=== PATIENT | female | born 1965 | race Caucasian/White ===

== ENCOUNTER → 2019-04-17 17:21 | Outpatient (BNVA) | payer MEDICAID, SELFPAY | PROVIDERS: PCP Family Medicine; Referring Provider Registered Nurse; Visit Provider Registered Nurse | DX: Z13.228 Encounter for screening for other metabolic disorders (principal) | CPT/HCPCS: 83036 ==

== ENCOUNTER → 2019-09-11 12:08 | Outpatient (BNVA) | payer MEDICAID, SELFPAY ==
[2019-04-19 15:36] VITALS: BP 123/73; BMI 37.8
== END ==
PROVIDERS: Visit Provider Family Medicine
DX: M54.32 Sciatica, left side (principal); J30.9 Allergic rhinitis, unspecified; M19.90 Unspecified osteoarthritis, unspecified site; K21.9 Gastro-esophageal reflux disease without esophagitis; E78.2 Mixed hyperlipidemia; R53.83 Other fatigue; J44.1 Chronic obstructive pulmonary disease with (acute) exacerbation
CPT/HCPCS: 82607; 82652; 84443; 85025

== ENCOUNTER → 2020-03-28 13:49 | Outpatient (BNVA) | payer MEDICAID, SELFPAY ==
[2019-04-19 15:36] VITALS: BP 123/73; BMI 37.8
== END ==
PROVIDERS: PCP Family Medicine; Referring Provider Family Medicine; Visit Provider Anesthesiology Pain Medicine
DX: M47.816 Spondylosis without myelopathy or radiculopathy, lumbar region (principal); M54.16 Radiculopathy, lumbar region; M54.32 Sciatica, left side; F17.210 Nicotine dependence, cigarettes, uncomplicated; Z98.890 Other specified postprocedural states; Z87.19 Personal history of other diseases of the digestive system; Z90.49 Acquired absence of other specified parts of digestive tract
CPT/HCPCS: 99205

== ENCOUNTER 2020-04-10 13:23 | Outpatient (CLI) | payer MEDICAID, SELFPAY ==
[2019-04-19 15:36] VITALS: BP 123/73; BMI 37.8
--- NOTE | 2020-04-10 13:45 | MR_ITS ---
WS: [id number] MRI LUMBAR SPINE NONCONTRAST HISTORY: M54.16 - Radiculopathy, lumbar region, LEFT leg numbness. COMPARISON: None available. TECHNIQUE: Sagittal and axial multisequence imaging is submitted. Mild spondylitic changes in the cervical spine at C5-6 with mild encroachment upon the ventral thecal sac. There is an additional encroachment into the posterior RIGHT lateral thecal sac at T5-6 due to osteophyte disease and probable calcification. No definite cord contact. Normal lumbar alignment with no compression fractures or marrow edema. Disc spaces and vertebral body heights are well-preserved. Conus terminates normally at L1. L1-L2: Normal. L2-L3: Minimal facet joint arthritis. No stenosis. L3-L4: Minimal facet joint arthritis with no stenosis. L4-L5: Moderate ligamentum flavum hypertrophy and facet arthritis. Very mild encroachment upon the th ecal sac but no significant stenosis. No disc protrusion. L5-S1: No significant stenosis or disc protrusions. Mild facet arthritis. Retroperitoneum is negative. Liver is mildly enlarged at 18 cm in length. MR/MR lumbar spine wo con* [id number] IMPRESSION: 1. No significant central or foraminal disc protrusion or stenosis. 2. Very minimal encroachment upon the thecal sac at the L4-5 level. 3. No disc protrusion.
== END 2020-04-10 13:24 | disposition home or self-care (01) ==
LOC: RADSHAW 13:25
PROVIDERS: PCP Family Medicine; Visit Provider Anesthesiology Pain Medicine
DX: M54.16 Radiculopathy, lumbar region (principal)
CPT/HCPCS: 72148

== ENCOUNTER → 2020-06-27 12:42 | Outpatient (BNVA) | payer MEDICAID, SELFPAY ==
[2019-04-19 15:36] VITALS: BP 123/73; BMI 37.8
== END ==
PROVIDERS: PCP Family Medicine; Visit Provider Anesthesiology Pain Medicine
DX: M25.551 Pain in right hip (principal); M25.552 Pain in left hip; M54.32 Sciatica, left side; F17.210 Nicotine dependence, cigarettes, uncomplicated; Z98.890 Other specified postprocedural states; Z87.19 Personal history of other diseases of the digestive system; Z90.49 Acquired absence of other specified parts of digestive tract; M54.10 Radiculopathy, site unspecified
CPT/HCPCS: 99215

== ENCOUNTER → 2020-07-22 13:31 | Outpatient (BNVA) | payer MEDICAID, SELFPAY ==
[2019-04-19 15:36] VITALS: BP 123/73; BMI 37.8
== END ==
PROVIDERS: PCP Family Medicine; Visit Provider Anesthesiology Pain Medicine
DX: M47.816 Spondylosis without myelopathy or radiculopathy, lumbar region (principal); M54.32 Sciatica, left side; F17.210 Nicotine dependence, cigarettes, uncomplicated
CPT/HCPCS: 64493; 64494; 64495; J3490

== ENCOUNTER → 2020-09-09 14:52 | Outpatient (BNVA) | payer MEDICAID, SELFPAY ==
[2019-04-19 15:36] VITALS: BP 123/73; BMI 37.8
== END ==
PROVIDERS: PCP Family Medicine; Visit Provider Family Medicine
DX: M54.32 Sciatica, left side (principal); M77.8 Other enthesopathies, not elsewhere classified; J41.0 Simple chronic bronchitis; Z13.1 Encounter for screening for diabetes mellitus; E78.2 Mixed hyperlipidemia; M25.512 Pain in left shoulder
CPT/HCPCS: 73030; 80053; 80061; 85025

== ENCOUNTER → 2020-10-21 15:09 | Outpatient (BNVA) | payer MEDICAID, SELFPAY ==
[2019-04-19 15:36] VITALS: BP 123/73; BMI 37.8
== END ==
PROVIDERS: PCP Family Medicine; Referring Provider Family Medicine; Visit Provider Specialist
DX: M77.8 Other enthesopathies, not elsewhere classified (principal)
CPT/HCPCS: 73030

== ENCOUNTER 2020-11-12 07:04 | Outpatient (CLI) | payer MEDICAID, SELFPAY ==
[2019-04-19 15:36] VITALS: BP 123/73; BMI 37.8
--- NOTE | 2020-11-12 07:15 | MR_ITS ---
WS: [id number] MRI LEFT SHOULDER NONCONTRAST TECHNIQUE: Sagittal T2, coronal T1, T2 and proton density imaging. Axial gradient PDE imaging. CLINICAL INFORMATION: M75.02 - Adhesive capsulitis of left shoulder COMPARISON: None. FINDINGS: Mild degenerative arthritis AC joint with mild edema. Mild downsloping acromion. Slight subacromial s purring. Mild chronic thinning of the distal supraspinatus with tendinopathy. Small amount of subacro mial/subdeltoid fluid. Normal infraspinatus. Normal subscapularis. Normal teres minor. Normal biceps tendon in the bicipital groove. Normal intra-articular biceps tendon. Glenoid labrum ap pears grossly normal. Mild thickening along the axillary recess can be seen with adhesive capsulitis in appropriate clinical setting. Small amount of signal abnormality in the rotator interval. MR/MR shoulder LT wo con* [id number] IMPRESSION: 1. Mild degenerative arthritis AC joint with mild downsloping acromion and sub acromial spurring. 2. Tendinopathy in the distal supraspinatus. Rotator cuff is otherwise normal in appearance. 3. Normal biceps tendon in the bicipital groove. 4. Visually small volume glenohumeral joint with thickening along the axillary recess. Small amount of signal abnormality in the rotator interval. Findings c an be seen with adhesive capsulitis in appropriate clinical setting.
== END 2020-11-12 07:05 | disposition home or self-care (01) ==
LOC: RADSHAW 07:06
PROVIDERS: PCP Family Medicine; Visit Provider Specialist
DX: M75.02 Adhesive capsulitis of left shoulder (principal); M19.012 Primary osteoarthritis, left shoulder
CPT/HCPCS: 73221

== ENCOUNTER → 2021-03-10 14:35 | Outpatient (BNVA) | payer MEDICAID, SELFPAY ==
[2019-04-19 15:36] VITALS: BP 123/73; BMI 37.8
== END ==
PROVIDERS: PCP Family Medicine; Visit Provider Family Medicine
DX: Z13.1 Encounter for screening for diabetes mellitus (principal); R73.9 Hyperglycemia, unspecified; R74.8 Abnormal levels of other serum enzymes
CPT/HCPCS: 80048; 83036

== ENCOUNTER → 2021-06-18 15:37 | Outpatient (BNVA) | payer MEDICAID, SELFPAY ==
[2019-04-19 15:36] VITALS: BP 123/73; BMI 37.8
== END ==
PROVIDERS: PCP Family Medicine; Visit Provider Family Medicine
DX: E78.2 Mixed hyperlipidemia (principal); R73.03 Prediabetes; N18.9 Chronic kidney disease, unspecified
CPT/HCPCS: 80048; 80061; 83036

== ENCOUNTER → 2021-12-17 14:55 | Outpatient (BNVA) | payer MEDICAID, SELFPAY ==
[2019-04-19 15:36] VITALS: BP 123/73; BMI 37.8
== END ==
PROVIDERS: PCP Family Medicine; Visit Provider Family Medicine
DX: M54.32 Sciatica, left side (principal); R29.898 Other symptoms and signs involving the musculoskeletal system; R29.6 Repeated falls; J44.9 Chronic obstructive pulmonary disease, unspecified; M75.02 Adhesive capsulitis of left shoulder; J30.9 Allergic rhinitis, unspecified; G43.709 Chronic migraine without aura, not intractable, without status migrainosus; K21.9 Gastro-esophageal reflux disease without esophagitis; E78.2 Mixed hyperlipidemia; N18.31 Chronic kidney disease, stage 3a; R73.03 Prediabetes; G56.03 Carpal tunnel syndrome, bilateral upper limbs; F33.1 Major depressive disorder, recurrent, moderate; M19.90 Unspecified osteoarthritis, unspecified site; Z87.891 Personal history of nicotine dependence; J30.1 Allergic rhinitis due to pollen
CPT/HCPCS: 80048; 83036

== ENCOUNTER → 2022-03-26 13:46 | Outpatient (BNVA) | payer MEDICAID, SELFPAY ==
[2019-04-19 15:36] VITALS: BP 123/73; BMI 37.8
== END ==
PROVIDERS: PCP Family Medicine; Visit Provider Family Medicine
DX: G56.03 Carpal tunnel syndrome, bilateral upper limbs (principal); M19.90 Unspecified osteoarthritis, unspecified site; M54.32 Sciatica, left side; E78.2 Mixed hyperlipidemia; N18.31 Chronic kidney disease, stage 3a; K21.9 Gastro-esophageal reflux disease without esophagitis; R73.03 Prediabetes; Z87.891 Personal history of nicotine dependence; Z68.41 Body mass index [BMI] 40.0-44.9, adult; F40.01 Agoraphobia with panic disorder
CPT/HCPCS: 80048; 80061

== ENCOUNTER → 2022-05-04 15:08 | Outpatient (BNVA) | payer MEDICAID, SELFPAY ==
[2019-04-19 15:36] VITALS: BP 123/73; BMI 37.8
== END ==
PROVIDERS: PCP Family Medicine; Visit Provider Emergency Medicine
DX: S69.91XA Unspecified injury of right wrist, hand and finger(s), initial encounter (principal); W19.XXXA Unspecified fall, initial encounter
CPT/HCPCS: 73110

== ENCOUNTER → 2022-05-14 15:50 | Outpatient (BNVA) | payer MEDICAID, SELFPAY ==
[2019-04-19 15:36] VITALS: BP 123/73; BMI 37.8
== END ==
PROVIDERS: PCP Family Medicine; Visit Provider Emergency Medicine
DX: S66.911A Strain of unspecified muscle, fascia and tendon at wrist and hand level, right hand, initial encounter (principal); X58.XXXA Exposure to other specified factors, initial encounter
CPT/HCPCS: 73110

== ENCOUNTER → 2022-05-27 12:59 | Outpatient (BNVA) | payer MEDICAID, SELFPAY ==
[2019-04-19 15:36] VITALS: BP 123/73; BMI 37.8
== END ==
PROVIDERS: PCP Family Medicine; Referring Provider Family Medicine; Visit Provider Specialist
DX: R20.0 Anesthesia of skin (principal); R20.2 Paresthesia of skin
CPT/HCPCS: 95910; 95912

== ENCOUNTER → 2022-09-16 15:27 | Outpatient (BNVA) | payer MEDICAID, SELFPAY ==
[2019-04-19 15:36] VITALS: BP 123/73; BMI 37.8
== END ==
PROVIDERS: PCP Family Medicine; Visit Provider Family Medicine
DX: L25.9 Unspecified contact dermatitis, unspecified cause (principal); M75.02 Adhesive capsulitis of left shoulder; J41.0 Simple chronic bronchitis; J44.9 Chronic obstructive pulmonary disease, unspecified; M54.32 Sciatica, left side; J30.9 Allergic rhinitis, unspecified; M19.90 Unspecified osteoarthritis, unspecified site; K21.9 Gastro-esophageal reflux disease without esophagitis; G43.709 Chronic migraine without aura, not intractable, without status migrainosus; E78.2 Mixed hyperlipidemia; M62.838 Other muscle spasm; N18.9 Chronic kidney disease, unspecified; R73.03 Prediabetes; E11.9 Type 2 diabetes mellitus without complications
CPT/HCPCS: 80053; 83036

== ENCOUNTER → 2023-02-23 14:42 | Outpatient (BNVA) | payer MEDICAID, SELFPAY ==
[2019-04-19 15:36] VITALS: BP 123/73; BMI 37.8
== END ==
PROVIDERS: PCP Family Medicine; Visit Provider Family Medicine
DX: J41.0 Simple chronic bronchitis (principal); J44.9 Chronic obstructive pulmonary disease, unspecified; M19.90 Unspecified osteoarthritis, unspecified site; M62.838 Other muscle spasm; M54.32 Sciatica, left side; E78.2 Mixed hyperlipidemia; G43.709 Chronic migraine without aura, not intractable, without status migrainosus; K21.9 Gastro-esophageal reflux disease without esophagitis; N18.9 Chronic kidney disease, unspecified; R73.03 Prediabetes; Z51.81 Encounter for therapeutic drug level monitoring; E11.9 Type 2 diabetes mellitus without complications; Z68.41 Body mass index [BMI] 40.0-44.9, adult; E66.9 Obesity, unspecified; N18.31 Chronic kidney disease, stage 3a; R03.0 Elevated blood-pressure reading, without diagnosis of hypertension
CPT/HCPCS: 80053; 80061; 83036; 85025

== ENCOUNTER → 2023-05-18 16:35 | Outpatient (BNVA) | payer MEDICAID, SELFPAY ==
[2023-03-18 14:23] VITALS: BP 146/85; BMI 40.6
== END ==
PROVIDERS: PCP Family Medicine; Referring Provider Family Medicine; Visit Provider Family Medicine
DX: E11.9 Type 2 diabetes mellitus without complications (principal)
CPT/HCPCS: 80048; 83036

== ENCOUNTER → 2023-05-25 15:11 | Outpatient (BNVA) | payer MEDICAID, SELFPAY ==
[2023-03-18 14:23] VITALS: BP 146/85; BMI 40.6
== END ==
PROVIDERS: PCP Family Medicine; Visit Provider Family Medicine
DX: R53.83 Other fatigue
CPT/HCPCS: 82652

== ENCOUNTER → 2023-10-11 16:29 | Outpatient (BNVA) | payer MEDICAID, SELFPAY ==
[2023-03-18 14:23] VITALS: BP 146/85; BMI 40.6
== END ==
PROVIDERS: PCP Family Medicine; Visit Provider Family Medicine
DX: M19.90 Unspecified osteoarthritis, unspecified site (principal); M62.838 Other muscle spasm; M54.32 Sciatica, left side; K21.9 Gastro-esophageal reflux disease without esophagitis; G43.709 Chronic migraine without aura, not intractable, without status migrainosus; E78.2 Mixed hyperlipidemia; E55.9 Vitamin D deficiency, unspecified; E11.9 Type 2 diabetes mellitus without complications; M54.9 Dorsalgia, unspecified; R07.81 Pleurodynia; I10 Essential (primary) hypertension
CPT/HCPCS: 80048; 83036

== ENCOUNTER → 2024-04-10 13:58 | Outpatient (BNVA) | payer MEDICAID, SELFPAY ==
[2023-03-18 14:23] VITALS: BP 146/85; BMI 40.6
== END ==
PROVIDERS: PCP Family Medicine; Visit Provider Family Medicine
DX: E11.9 Type 2 diabetes mellitus without complications (principal)
CPT/HCPCS: 80053; 80061; 83036

== ENCOUNTER → 2024-06-30 14:50 | Outpatient (BNVA) | payer MEDICAID, SELFPAY ==
[2024-04-12 09:32] VITALS: BP 156/105; BMI 40.9
== END ==
PROVIDERS: PCP Family Medicine; Visit Provider Family Medicine
DX: M54.2 Cervicalgia (principal); G89.29 Other chronic pain; M79.89 Other specified soft tissue disorders
CPT/HCPCS: 72040